=== PATIENT | female | born 1985 | race Hispanic/Latino ===

== ENCOUNTER 2017-02-24 17:12 | Emergency (ER) | payer BC ==
[~2017-02-24] VITALS: Ht 160 cm; Wt 84.8 kg
--- NOTE | 2017-02-24 18:57 | Diagnostic Imaging Report ---
PROCEDURE: Frontal and lateral views of the chest. COMPARISON: None. INDICATIONS: HIGH BLOOD PRESSURE FINDINGS: Lines/tubes: None. Lungs: The lungs are well inflated and clear. There is no evidence of pneumonia or pulmonary edema. Pleura: There is no pleural effusion or pneumothorax. Heart and mediastinum: The heart and the mediastinum are normal. Bones: No acute bony abnormality. IMPRESSION: 1. No acute cardiopulmonary abnormalities. Tejas Roldan M.D. Dictated by: Tejas Roldan M.D. on 02/24/2017 at 19:05 Electronically approved by: Tejas Roldan M.D. on 02/24/2017 at 19:05
[2017-02-24 19:02] LABS: BILIRUBIN,URINE NEGATIVE (NEGATIVE); KETONES,URINE NEGATIVE (NEGATIVE); LEUKOCYTE ESTERASE ,URINE NEGATIVE (NEGATIVE); NITRITE,URINE NEGATIVE (NEGATIVE); PROTEIN,URINE DIPSTICK NEGATIVE (NEGATIVE); URINE UROBILINOGEN 0.2 mg/dL (0.2 - 1)
[2017-02-24 19:05] LABS: PREGNANCY TEST, URINE NEGATIVE (NEGATIVE)
[2017-02-24 19:06] LABS: CLARITY,URINE SL CLOUDY (CLEAR); COLOR,URINE YELLOW (YELLOW)
[2017-02-24 19:16] LABS: BACTERIA,URINE MANY /HPF; EPITHELIAL CELLS,URINE FEW /LPF; RBC,URINE 0-5 /HPF (0-5); WBC,URINE (MAN) 0-5 /HPF (0-5)
[2017-02-24 19:51] LABS: BASOPHILS # (AUTO) 0.1 (0.0-0.1); BASOPHILS % 0.6 % (0.0-1.0); EOSINOPHILS # (AUTO) 0.1 (0.0-0.4); EOSINOPHILS % 1.8 % (0.0-6.0); HEMATOCRIT 40.6 % (34.2-44.1); HEMOGLOBIN 13.8 g/dL (12.0-16.0); LYMPHOCYTES # (AUTO) 1.9 (1.0-3.2); MEAN CORPUSCULAR HEMOGLOBIN 29.6 pg (28-32); MEAN CORPUSCULAR VOLUME 86.9 fL (81-99); MONOCYTES # (AUTO) 0.6 (0.2-0.8); MONOCYTES % 7.4 % (4.4-11.3); NEUTROPHILS # (AUTO) 5.1 (2.1-6.9); NEUTROPHILS % 65.6 % (38.7-80.0); PLATELET COUNT 318 x10e3/uL (140-360); RED BLOOD COUNT 4.67 x10e6/uL (3.6-5.1); RED CELL DISTRIBUTION WIDTH 12.9 % (11.7-14.4)
[2017-02-24 20:04] LABS: ALANINE AMINOTRANSFERASE 37 IU/L (0-55); ALBUMIN 3.9 g/dL (3.5-5.0); ALBUMIN/GLOBULIN RATIO 0.8 (0.8-2.0); ALKALINE PHOSPHATASE 103 IU/L (40-150); ANION GAP 12.3 mmol/L (8-16); BLOOD UREA NITROGEN 7 mg/dL (7-26); BUN/CREATININE RATIO 11 (6-25); CALCIUM 9.7 mg/dL (8.4-10.2); CARBON DIOXIDE 24 mmol/L (22-29); CHLORIDE 105 mmol/L (98-107); CREATININE, SERUM 0.63 mg/dL (0.57-1.11); EST GLOMERULAR FILTRATION RATE > 60 ML/MIN (60-); GLUCOSE 81 mg/dL (74-118); POTASSIUM 3.3 mmol/L (3.5-5.1); SODIUM 138 mmol/L (136-145)
[2017-02-24] MEDS ORDERED: POTASSIUM CHLORIDE 20 MEQ TAB CR PO STA (20:09)
[2017-02-24 20:10] LABS: TROPONIN I 0.012 ng/mL (0-0.300)
[2017-02-24 21:09] VITALS: BP 113/79
== END 2017-02-24 21:10 | disposition home or self-care (01) ==
LOC: ER 17:12
DX: R06.02 Shortness of breath (principal); R42 Dizziness and giddiness; E87.6 Hypokalemia; I10 Essential (primary) hypertension
CPT/HCPCS: 36415; 71020; 80053; 81001; 81025; 84484; 85025; 85379; 87086; 93005; 99284

== ENCOUNTER 2017-05-04 18:00 | Emergency (ER) | payer BC ==
[~2017-05-04] VITALS: Ht 160 cm; Wt 93.9 kg
--- OUTSIDE RECORDS SUMMARY | 2017-05-04 18:04 | XMS REPORT ---
Author Author [facility] Address Unknown Phone Unavailable Care Team Providers [facility] Scaler Name Role Phone DONNY HALL Unavailable Unavailable Problems This patient has no known problems. Allergies, Adverse Reactions, Alerts This patient has no known allergies or adverse reactions. Medications This patient has no known medications. Results Test Description Test Time Test Comments Text Results Atomic Results Result Comments CHEST 2 VIEWS [place] [address] Patient Name: OPHELIA OVIEDO MR #: [id number] : 1985 Age/Sex: 31/F Req #: [id number] Adm Physician: Ordered by: RENÉE BAUER GRANULAR OPERATOR Report #: [id number] Location: ER Room/Bed: Procedure: [id number] DX/CHEST 2 VIEWS Exam Date: Exam Time: REPORT STATUS: Signed PROCEDURE: Frontal and lateral views of the chest. COMPARISON: None. INDICATIONS: HIGH BLOOD PRESSURE FINDINGS: Lines/tubes: None. Lungs: The lungs are well inflated and clear. There is no evidence of pneumonia or pulmonary edema. Pleura: There is no pleural effusion or pneumothorax. Heart and mediastinum: The heart and the mediastinum are normal. Bones: No acute bony abnormality. IMPRESSION: 1. No acute cardiopulmonary abnormalities. Opal Roldan M.D. Dictated by: Opal Roldan M.D. on 02/24/2017 at 19:05 Electronically approved by: Opal Roldan M.D. on 2016 at 19:05 Dictated By: OPAL ROLDAN MD 04 Transcribed By: PAYAL on 1904 COPY TO: RENÉE BAUER NP
== END 2017-05-04 18:30 | disposition home or self-care (01) ==
LOC: ER 18:00
DX: R50.9 Fever, unspecified (principal); R05 Cough; H66.002 Acute suppurative otitis media without spontaneous rupture of ear drum, left ear; J00 Acute nasopharyngitis [common cold]
CPT/HCPCS: 99282

== ENCOUNTER 2018-06-26 16:03 | Emergency (ER) | payer BC ==
[~2018-06-26] VITALS: Ht 160 cm; Wt 96.6 kg
== END 2018-06-26 17:00 | disposition home or self-care (01) ==
LOC: FSED 16:03
DX: B35.6 Tinea cruris (principal); E78.5 Hyperlipidemia, unspecified; R73.9 Hyperglycemia, unspecified
CPT/HCPCS: 99283

== ENCOUNTER 2018-08-26 16:46 | Emergency (ER) | payer BC ==
[~2018-08-26] VITALS: Ht 160 cm; Wt 90.7 kg
[2018-08-26] MEDS ORDERED: DIPHTH/TETANUS/ACEL. PERTUSSIS 0.5 ML SYR IM ONE (17:00)
[2018-08-26] MEDS ORDERED: LIDOCAINE HCL 1% LOCAL INJ 20 ML VIAL INJ ONE (17:00)
[2018-08-26] MEDS ORDERED: NEOMYCIN/POLYMYX/BACITR OINT 0.9 GM PKT TOP ONE (17:00)
--- NOTE | 2018-08-26 17:04 | NUR ---
Site irrigated with 1,000 mL of NS.
[2018-08-26] MEDS ORDERED: TETANUS/DIPHTHERIA TOX ADULT 0.5 ML SYR ONE (17:10)
[2018-08-26] MEDS ORDERED: TETANUS/DIPHTHERIA TOX ADULT 0.5 ML SYR IM ONE (17:15)
--- NOTE | 2018-08-26 17:43 | Diagnostic Imaging Report ---
Exam: Right hand radiographs-3 views History: Laceration right hand/thumb. Comparison: None. Findings: There is a soft tissue laceration along the lateral aspect of the base of the thumb/hand. No evidence of acute fracture or malalignment. No evidence of radiopaque foreign body. Impression: Soft tissue laceration at the base of the thumb without acute osseous abnormality. Signed by: Dr. Mariaa Snider MD on 08/26/2018 5:39 PM
[2018-08-26 18:19] VITALS: BP 114/68
== END 2018-08-26 18:27 | disposition home or self-care (01) ==
LOC: ER 16:46
DX: S61.411A Laceration without foreign body of right hand, initial encounter (principal); W25.XXXA Contact with sharp glass, initial encounter; Y93.G1 Activity, food preparation and clean up; Y92.010 Kitchen of single-family (private) house as the place of occurrence of the external cause; Z82.49 Family history of ischemic heart disease and other diseases of the circulatory system
CPT/HCPCS: 90471; 90714; 99283

== ENCOUNTER 2020-10-30 10:02 | Emergency (ER) | payer SELFPAY ==
[~2020-10-30] VITALS: Ht 160 cm; Wt 93.6 kg
[2020-10-30] MEDS ORDERED: PREDNISONE20 MG PO (11:21)
[2020-10-30] MEDS ORDERED: AZITHROMYCIN250 MG PO (11:21)
== END 2020-10-30 11:51 | disposition home or self-care (01) ==
LOC: FSED 10:21
DX: J32.9 Chronic sinusitis, unspecified (principal)
CPT/HCPCS: 83518; 87400; 99283

== ENCOUNTER 2020-11-13 06:24 | Emergency (ER) | payer SELFPAY ==
[~2020-11-13] VITALS: Ht 160 cm; Wt 93.4 kg
[~2020-11-13 06:24] MED LIST: AZITHROMYCIN250 MG PO; PREDNISONE20 MG PO
[2020-11-13] MEDS ORDERED: CASIRIVIMAB/IMDEVIMAB 10 ML in SODIUM CHLORIDE 0.9% 100 ML IV ONE (07:15)
== END 2020-11-13 07:59 | disposition home or self-care (01) ==
LOC: ER 07:02
DX: R05 Cough (principal); U07.1 COVID-19
CPT/HCPCS: 99283; J7050

== ENCOUNTER 2020-11-16 11:06 | Emergency (ER) | payer SELFPAY ==
[~2020-11-16] VITALS: Ht 160 cm; Wt 93.4 kg
[2020-11-16] MEDS ORDERED: KETOROLAC TROMETHAMINE 60 MG/2 ML VIAL IM NR (11:30)
== END 2020-11-16 12:25 | disposition home or self-care (01) ==
LOC: ER 11:25
DX: R06.02 Shortness of breath (principal); R05 Cough; U07.1 COVID-19
CPT/HCPCS: 93005; 99282; J1885